=== PATIENT | male | born 1960 | race American Indian/Alaskan Native ===

== ENCOUNTER 2021-03-01 10:31 | Emergency (ER) | payer SELFPAY ==
[2021-03-01 11:14] VITALS: BP 147/87
[2021-03-01] MEDS ORDERED: traMADol 50 MG TAB PO ONE (11:14)
[2021-03-01] MEDS ORDERED: IBUPROFEN 800 MG TAB PO ONE (11:14)
--- NOTE | 2021-03-01 11:17 | Emergency Department Report ---
ED Upper Extremity Inj HPI - General Chief Complaint: Extremity Injury, Upper Stated Complaint: LT ARE INJURY Time Seen by Provider: 03/01/21 11:10 Source: patient Mode of arrival: Ambulatory Limitations: No Limitations - History of Present Illness Initial Comments: 60-year-old male presents to ED with left elbow injury. Patient states he fell on yesterday and is now having pain to the left elbow. Patient has decreased range of motion in the left elbow. MD Complaint: Injury to:: left, elbow -: Last night Other Injuries: none Improves With: immobilization Worsens With: movement of extremity Context: fall Associated Symptoms: denies: weakness, numbness - Related Data Previous Rx's Medication Instructions Recorded Last Taken Type Naproxen [Naprosyn] 500 mg PO BID #20 tablet 03/01/21 Unknown Rx traMADoL [Ultram] 50 mg PO Q6HR PRN #7 tablet 03/01/21 Unknown Rx Allergies Allergy/AdvReac Type Severity Reaction Status Date / Time No Known Allergies Allergy Verified 03/01/21 11:08 ED Review of Systems ROS: Stated complaint: LT ARE INJURY Other details as noted in HPI Comment: All other systems reviewed and negative Musculoskeletal: as per HPI Neurological: denies: weakness, numbness ED Past Medical Hx - Past Medical History Previous Medical History?: No - Surgical History Past Surgical History?: No - Social History Smoking Status: Current Every Day Smoker - Medications Home Medications: Home Medications Medication Instructions Recorded Confirmed Last Taken Type Naproxen [Naprosyn] 500 mg PO BID #20 tablet 03/01/21 Unknown Rx traMADoL [Ultram] 50 mg PO Q6HR PRN #7 tablet 03/01/21 Unknown Rx ED Physical Exam - General Limitations: No Limitations General appearance: alert, in no apparent distress - Head Head exam: Present: atraumatic, normocephalic - Eye Eye exam: Present: normal appearance, EOMI - ENT ENT exam: Present: mucous membranes moist - Neck Neck exam: Present: normal inspection - Respiratory Respiratory exam: Present: normal lung sounds bilaterally. Absent: respiratory distress - Cardiovascular Cardiovascular Exam: Present: regular rate, normal rhythm - GI/Abdominal GI/Abdominal exam: Absent: distended - Extremities Exam Extremities exam: Present: other (Moderate swelling present to the left elbow, decreased range of motion secondary to pain; patient able to move fingers of the left hand, sensation intact) - Neurological Exam Neurological exam: Present: alert, oriented X3 - Psychiatric Psychiatric exam: Present: normal affect, normal mood - Skin Skin exam: Present: warm, dry, intact, normal color ED Course Vital Signs 03/01/21 03/01/21 03/01/21 10:40 11:10 11:12 Temperature 98.5 F 98.4 F 98.4 F Pulse Rate 81 67 67 Respiratory 18 14 14 Rate Blood Pressure 160/92 147/87 Blood Pressure 145/77 [Right] O2 Sat by Pulse 97 99 99 Oximetry ED Medical Decision Making - Radiology Data Radiology results: report reviewed, image reviewed - Medical Decision Making 60-year-old male with left elbow pain and swelling since fall last night. X-ray shows likely triceps tendon avulsion. No evidence of any radial fracture. Patient will still be placed in a posterior splint. He has been advised to follow-up with Ortho for repeat imaging and evaluation. - Differential Diagnosis Fracture, sprain, dislocation Critical care attestation.: If time is entered above; I have spent that time in minutes in the direct care of this critically ill patient, excluding procedure time. ED Disposition Clinical Impression: Sprain of left elbow Disposition: HOME / SELF CARE / HOMELESS Is pt being admited?: No Condition: Stable Instructions: Elbow Sprain Additional Instructions: Please follow-up with orthopedic physician as information has been provided in your discharge paperwork. Your x-ray does not show any evidence of a significant fracture today. However, you may need a repeat x-ray to reevaluate for appearance of a fracture. Prescriptions: Naproxen [Naprosyn] 500 mg PO BID #20 tablet traMADoL [Ultram] 50 mg PO Q6HR PRN #7 tablet PRN Reason: Pain Referrals: MANN IBARRA MD [Staff Physician] - 3-5 Days Forms: Work/School Release Form(ED) Time of Disposition: 12:50
--- NOTE | 2021-03-01 12:09 | XRay Report ---
LEFT ELBOW 3 VIEW(S) INDICATION / CLINICAL INFORMATION: pain, injury COMPARISON: None available. FINDINGS: BONES / JOINT(S): No acute fracture or subluxation. No significant arthritis. SOFT TISSUES: Soft tissue swelling overlying the olecranon bursa. Soft tissue ossification within the distal triceps tendon 1.5 cm away from posterior olecranon likely secondary to fractured olecranon e nthesophyte/triceps tendon avulsion. MRI elbow may be useful for further evaluation. ADDITIONAL FINDINGS: None. Signer Name: Noel Medel MD Signed: 03/01/2021 12:04 PM Workstation Name: [id number]
== END 2021-03-01 14:09 | disposition home or self-care (01) ==
LOC: ED 10:31
DX: S53.402A Unspecified sprain of left elbow, initial encounter (principal); F17.200 Nicotine dependence, unspecified, uncomplicated; W19.XXXA Unspecified fall, initial encounter; Y93.89 Activity, other specified; Y92.89 Other specified places as the place of occurrence of the external cause; Y99.8 Other external cause status
CPT/HCPCS: 99283